=== PATIENT | female | born 1990 | race Two or more races ===

== ENCOUNTER 2016-06-24 18:01 | Emergency (ER) | payer MEDICAID ==
[~2016-06-24] VITALS: Ht 167.6 cm; Wt 116.0 kg
[2016-06-24 18:06] VITALS: BP 150/98
== END 2016-06-24 21:06 | disposition home or self-care (01) ==
LOC: ER 18:02
DX: B34.9 Viral infection, unspecified (principal); R05 Cough; F17.200 Nicotine dependence, unspecified, uncomplicated; F12.10 Cannabis abuse, uncomplicated; J45.909 Unspecified asthma, uncomplicated; R09.81 Nasal congestion
CPT/HCPCS: 99282

== ENCOUNTER 2022-01-17 14:42 | Emergency (ER) | payer MEDICAID ==
[~2022-01-17] VITALS: Ht 167.6 cm; Wt 180.0 kg
[2022-01-17] MEDS ORDERED: SULF1TAB48 MT (18:29)
[2022-01-17] MEDS ORDERED: CEPH500C2 MT (18:29)
[2022-01-17] MEDS ORDERED: CEPHALEXIN 250MG CAPSULE PO ONE (18:30)
[2022-01-17] MEDS ORDERED: SULFAMETHOXAZOLE/TRIMETHOPRIM 800/160MG TABLET PO ONE (18:30)
[2022-01-17 19:38] VITALS: BP 123/78
== END 2022-01-17 19:39 | disposition home or self-care (01) ==
LOC: ER 14:42
DX: N61.0 Mastitis without abscess (principal); N63.10 Unspecified lump in the right breast, unspecified quadrant; I10 Essential (primary) hypertension; E66.9 Obesity, unspecified; Z68.44 Body mass index [BMI] 60.0-69.9, adult
CPT/HCPCS: 99283